=== PATIENT | female | born 2000 | race Caucasian/White ===

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

== ENCOUNTER → 2022-02-26 10:38 | Outpatient (BNVA) | payer MEDICAID, SELFPAY | PROVIDERS: PCP Nurse Practitioner; Visit Provider Nurse Practitioner Women's Health | DX: Z30.46 Encounter for surveillance of implantable subdermal contraceptive (principal); Z11.3 Encounter for screening for infections with a predominantly sexual mode of transmission | CPT/HCPCS: 81025; 87491; 87591; 87661 ==

== ENCOUNTER 2022-04-11 12:42 | Emergency (ER) | payer MEDICAID, SELFPAY ==
[2022-04-11 12:47] VITALS: BP 114/80; PULSE 105; RESP 18; TEMP 36.6; O2SAT 98; BMI 22.4
--- NOTE | 2022-04-11 12:58 | XRR_ITS ---
PROCEDURE INFORMATION: Exam: XR Right Foot Exam date and time: 04/11/2022 2:23 PM Age: 21 years old Clinical indication: Pain; Toes; Right; Additional info: Injury/laceration TECHNIQUE: Imaging protocol: Radiologic exam of the Right foot. Views: 3 or more views. COMPARISON: No relevant prior studies available. FINDINGS: Bones/joints: Normal. Soft tissues: Normal. XR/XR foot RT min 3V* [id number] IMPRESSION: No acute findings.
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
[2022-04-11] MEDS: lidocaine 2% INJ 20 mL 6 ML INJECTION (16:14)
[2022-04-11] MEDS: neomycin-poly-bacitracin oint 28 gm 1 APPLIC TOPICAL (16:14)
--- NOTE | 2022-04-12 10:47 | PC.SOCIAL ---
Addendum entered by Marilou Enriquez 06/24/22 10:24: Patient had a follow up appointment scheduled with ortho - patient did attend appointment Addendum entered by Marilou Enriquez 04/21/22 13:50: Patient had a follow up appointment scheduled for Tuesday, April 26, 2022 at 2:[address] Lara at ortho. Clinic will call patient with appointment information. Original Note: Podiatry F/u Message request sent to podiatry scheduling requesting a f/u appointment. Clinic will contact patient with appointment date and time.
== END 2022-04-11 16:24 | disposition home or self-care (01) ==
PROVIDERS: Emergency Provider Physician Assistant; PCP Nurse Practitioner Family
DX: S91.214A Laceration without foreign body of right lesser toe(s) with damage to nail, initial encounter (principal); S92.534B Nondisplaced fracture of distal phalanx of right lesser toe(s), initial encounter for open fracture; W22.8XXA Striking against or struck by other objects, initial encounter
CPT/HCPCS: 11730; 12001; 73630; 96372; 99284; J0696

== ENCOUNTER → 2022-04-26 12:40 | Outpatient (BNVA) | payer MEDICAID, SELFPAY | PROVIDERS: PCP Nurse Practitioner Family; Visit Provider Podiatrist Foot & Ankle Surgery | DX: S92.911A Unspecified fracture of right toe(s), initial encounter for closed fracture (principal); X58.XXXA Exposure to other specified factors, initial encounter; L60.1 Onycholysis; R60.9 Edema, unspecified | CPT/HCPCS: 73630 ==

== ENCOUNTER 2024-01-30 21:48 | Emergency (ER) | payer MEDICAID, SELFPAY ==
--- NOTE | 2024-01-30 21:49 | XRR_ITS ---
PROCEDURE INFORMATION: Exam: XR Left Wrist Exam date and time: 01/30/2024 10:04 PM Age: 23 years old Clinical indication: Injury or trauma; Other: Punched a wall; Blunt trauma (contusions or hematomas); Wrist; Left TECHNIQUE: Imaging protocol: Radiologic exam of the left wrist. Views: 3 or more views. COMPARISON: No relevant prior studies available. FINDINGS: Bones/joints: Acute intra-articular fracture of the base of the 5th metacarpal. Soft tissues: Soft tissue swelling of the hand. XR/XR wrist LT min 3V* [id number] IMPRESSION: Acute intra-articular fracture of the base of the 5th metacarpal.
[2024-01-30 22:02] VITALS: BP 126/79; PULSE 94; RESP 14; TEMP 36.5; O2SAT 100
--- NOTE | 2024-01-30 22:12 | XRR_ITS ---
PROCEDURE INFORMATION: Exam: XR Left Hand Exam date and time: 01/30/2024 10:16 PM Age: 23 years old Clinical indication: Injury or trauma; Other: Punched a wall; Blunt trauma (contusions or hematomas); Hand; Left; Additional info: Punched wall TECHNIQUE: Imaging protocol: Radiologic exam of the left hand. Views: 3 or more views. COMPARISON: CR ([facility], ) 01/30/2024 10:04 PM FINDINGS: Bones/joints: Comminuted fracture of the base of the 5th metacarpal. Soft tissues: Mild soft tissue swelling. XR/XR hand LT min 3V* [id number] IMPRESSION: Comminuted fracture of the base of the 5th metacarpal.
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
[2024-01-30] MEDS: ibuprofen 800 mg tablet PO (22:14)
[2024-01-30 23:33] VITALS: PULSE 62; RESP 16; O2SAT 99
--- NOTE | 2024-02-01 07:38 | DCPLANNER ---
Message sent to Ortho for follow up on Boxer fracture.
== END 2024-01-30 23:34 | disposition home or self-care (01) ==
PROVIDERS: Emergency Provider Physician Assistant; PCP Nurse Practitioner Family
DX: S62.317A Displaced fracture of base of fifth metacarpal bone, left hand, initial encounter for closed fracture (principal); W22.09XA Striking against other stationary object, initial encounter
CPT/HCPCS: 29125; 73110; 73130; 99283

== ENCOUNTER → 2024-02-02 13:59 | Outpatient (BNVA) | payer MEDICAID, SELFPAY | PROVIDERS: PCP Nurse Practitioner Family; Referring Provider Physician Assistant; Visit Provider Nurse Practitioner | DX: S62.317A Displaced fracture of base of fifth metacarpal bone, left hand, initial encounter for closed fracture; W22.09XA Striking against other stationary object, initial encounter | CPT/HCPCS: 99204 ==

== ENCOUNTER 2024-06-16 11:23 | Emergency (ER) | payer MEDICAID, SELFPAY ==
[2024-06-16 11:39] VITALS: BP 114/82; PULSE 95; RESP 18; TEMP 36.5; O2SAT 99; BMI 21.2
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
[2024-06-16 12:04] VITALS: BP 114/82; PULSE 82; O2SAT 100
[2024-06-16 12:39] LABS: Covid PCR NEGATIVE (Negative); Influenza A NEGATIVE (Negative); Influenza B NEGATIVE (Negative); Respiratory Syncytial Virus Ce POSITIVE (Negative)
[2024-06-16 13:24] VITALS: BP 116/79; PULSE 84; RESP 16; O2SAT 100
== END 2024-06-16 13:24 | disposition home or self-care (01) ==
PROVIDERS: Emergency Medicine; Emergency Provider Emergency Medicine; PCP Nurse Practitioner Family
DX: J06.9 Acute upper respiratory infection, unspecified (principal); B97.4 Respiratory syncytial virus as the cause of diseases classified elsewhere; Z11.52 Encounter for screening for COVID-19; Z72.0 Tobacco use
CPT/HCPCS: 0241U; 99283